=== PATIENT | male | born 2000 | race Caucasian/White ===

== ENCOUNTER 2023-10-17 19:46 | Emergency (ER) | payer OTHER, SELFPAY ==
[2023-10-17 19:52] VITALS: BP 114/70
[2023-10-17 20:16] VITALS: BMI 20.1
[2023-10-17 20:17] VITALS: BP 122/77
[2023-10-17 20:27] VITALS: BP 123/90
[2023-10-17 20:35] LABS: % Basophils 0.7 % (0-2); % Eosinophils 3.1 % (0-6); % Immature Granulocytes 0.1 % (0-0.5); % Lymphocytes 16.4 % (20.5-51.1); % Monocytes 6.1 % (1.7-9.3); % Neutrophils 73.6 % (42.2-75.2); Absolute Basophils 0.1 10^3/uL (0-0.2); Absolute Eosinophils 0.2 10^3/uL (0-0.7); Absolute Lymphocytes 1.3 10^3/uL (1.2-3.4); Absolute Monocytes 0.5 10^3/uL (0.1-0.6); Absolute Neutrophils 5.6 10^3/uL (1.4-6.5); Hematocrit 37.7 % (39.0-52.0); Hemoglobin 13.7 g/dL (13.0-18.0); Mean Corp Hgb Conc. 36.3 g/dL (33.0-37.0); Mean Corpuscular Hgb 29.8 pg (27.0-31.0); Mean Corpuscular Volume 82.1 fL (80.0-94.0); Mean Platelet Volume 9.8 fL (7.4-10.4); Nucleated Red Blood Cells % 0 % (-); Platelet Count 242 10^3/uL (130-400); Red Blood Cell Count 4.59 10^6/uL (4.70-6.10); Red Cell Dist. Width 12.7 % (11.5-14.5); White Blood Cell Count 7.7 10^3/uL (4.8-10.8)
[2023-10-17 20:49] LABS: ALT (SGPT) 19 U/L (0-50); AST (SGOT) 27 U/L (17-59); Albumin 4.4 g/dl (3.5-5.0); Alkaline Phosphatase 65 U/L (38-126); Blood Urea Nitrogen 15 mg/dl (9-20); Calcium 9.2 mg/dl (8.4-10.2); Carbon Dioxide 24 mmol/L (22-30); Chloride 103 mmol/L (98-107); Estimated Creatinine Clearance > 125 ml/min; Glucose 105 mg/dl (70-99); Lipase 112 U/L (23-300); Sodium 136 mmol/L (135-145); Total Bilirubin 0.8 mg/dl (0.2-1.3); Total Protein 6.8 g/dl (6.3-8.2); eGFR > 60.00
--- NOTE | 2023-10-17 20:59 | ED.GENMED ---
History of Present Illness
General
Chief Complaint: Abdominal Pain
Source: patient
Time Seen by Provider: 10/17/23 20:54
History of Present Illness
History of Present Illness:
23-year-old male presents to the emergency room complaining of a pulsatile discomfort in his left upper abdomen. Symptoms began 2 days ago. He sometimes feels lightheaded as well. He describes the discomfort as pulsatile and shooting into his
left chest. No fever or chills. No nausea vomiting or diarrhea.
Phy Exam
Physical Exam
Physical Exam:
General: Awake, Alert, Oriented X3. No acute distress.
Vitals: unremarkable
Head: Atraumatic
Eyes: Pupils equal, EOMI
Throat: Airway intact, no exudates
Neck: Trachea midline
Lungs: Clear and equal b/l
Heart: Regular rate, no murmurs
Abd: Soft, no significant tenderness to palpation, no pulsatile mass
Neuro: Nonfocal
Skin: Warm, dry, no rash
Extremities: pulses equal b/l, no edema
Course
Orders/Labs/Results
Orders:
Orders
10/17/23 19:55
Electrocardiogram (*1) Urgent
Reason for Study: Palpitations
EKG- Treatment ONCE
10/17/23 20:14
IV Insert/Care/Rem.- Treatment PRN
10/17/23 20:26
Complete Blood Count/With Diff Urgent
Comprehensive Metabolic Panel Urgent
Lipase Urgent
Troponin I Urgent
10/17/23 20:58
CT Abd/pelvis W Iv Cont Urgent
Comment:
Reason For Exam: left upper quad pain
Abnormal Lab Results
10/17/23
20:26
RBC 4.59 L 10^6/uL
(4.70-6.10)
Hct 37.7 L %
(39.0-52.0)
Lymphocytes % 16.4 L %
(20.5-51.1)
Glucose 105 H mg/dl
(70-99)
10/17/23 20:26
10/17/23 20:26
Vital Signs
Initial and Last Documented VS:
Initial Vital Signs
Temp Pulse Resp BP Pulse Ox
98 F 82 26 114/70 100
10/17/23 19:52 10/17/23 19:52 10/17/23 19:52 10/17/23 19:52 10/17/23 19:52
Last Documented Vital Signs
Temp Pulse Resp BP Pulse Ox
98 F 63 15 119/78 100
10/17/23 19:52 10/17/23 21:55 10/17/23 21:55 10/17/23 21:55 10/17/23 19:52
MDM/Problems Addressed
Differential Diagnosis Includes:
Splenic aneurysm or other vascular malformation, intestinal spasm, anxiety
MDM/Problems Addressed:
CT abdomen pelvis unremarkable. Labs are unremarkable. Vital signs are normal. Unclear what patient symptoms are from but there is no evidence of an unstable process. Patient stable for discharge home and follow-up primary care provider
*Radiology
Radiology exam reviewed: radiology read reviewed (Vision report)
*Pulse Oximetry
Patient hypoxic: no
*EKG
Interpreted by ED Provider?: Yes
Heart Rate: 72
Rate: normal
Rhythm: sinus
[place]: normal axis
Interval: normal interval
QRS Pattern: normal QRS
Ischemia: no ischemia
*Damper Fitter Interpretation
Rate: normal
Interpretation: normal
Heart Rate: 72
Rhythm: sinus
*Critical Care Note
Total Time (30-74mins, 75-104mins- exclusive of procedures): Not Applicable
ED Attending Note
-
Portions of this chart may have been created with voice recognition software.� Occasional wrong word or��sound alike� substitutions may have occurred due to the inherent limitations of voice recognition software.
Discharge Plan
Departure
Patient Disposition: Home (Routine Discharge)
Date of Disposition: 10/17/23
Time of Disposition: 22:05
Patient with high blood pressure during this ER visit?: No
Condition: Good
Discharge Problem:
Abdominal pain
Instructions: Abdominal Pain
Prescriptions:
No Action
aspirin 81 mg Tablet
81 mg PO DAILY
Referrals:
Sreedhar Cornejo MD [Family Provider] -
Interventions
Interventions:
*Risk Screen - Suicide Last Done: 10/17/23 19:52
*General Assessment Last Done: 10/17/23 20:17
*Neglect/Abuse Screening Last Done: 10/17/23 19:52
*ED COVID-19 Vaccine History Last Done: 10/17/23 20:17
YK-Rksayy-Arxkxthony Assessment Last Done: 10/17/23 20:18
ED- Cardiac Assessment Last Done: 10/17/23 20:18
ED- Pulmonary Assessment Last Done: 10/17/23 20:18
Discharge Date and Time
Print Language: MARTINIQUAIS
[2023-10-17 21:00] VITALS: BP 117/74
[2023-10-17 21:00] LABS: Troponin I < 0.012 ng/ml
[2023-10-17 21:55] VITALS: BP 119/78
[2023-10-17 22:00] VITALS: BP 121/81
== END 2023-10-17 22:23 | disposition home or self-care (01) ==
LOC: EMR 19:46
PROVIDERS: EMERGENCY PHYSICIAN Emergency Medicine; FAMILY PHYSICIAN Family Medicine
DX: R10.10 Upper abdominal pain, unspecified (principal)
CPT/HCPCS: 99285; 74177; 80053; 83690; 84484; 85025; 93005; Q9967

== ENCOUNTER 2025-01-01 23:36 | Emergency (ER) | payer BC, SELFPAY ==
[2025-01-01 23:45] VITALS: BP 130/85
--- NOTE | 2025-01-02 00:06 | ED.GENMED ---
History of Present Illness
General
Chief Complaint: Fall
Time Seen by Provider: 01/01/25 23:57
History of Present Illness
History of Present Illness:
24-year-old male with history of A-fib presents to the emergency department for evaluation of headache, neck pain, and upper back pain after being injured while playing hockey. States he was checked into the boards and struck the left side of his
head forcefully, he does not remember the events thereafter. He states he awoke with everyone on his team standing around him. He reports intense neck and upper back pain at this time. Denies upper or lower extremity paresthesias or weakness.
Review of Systems
Review of Systems
Allergies reviewed?: Yes
All Other Systems: ROS reviewed and negative except as documented in HPI and ROS
Phy Exam
Physical Exam
Physical Exam:
GEN: Well appearing, NAD, WDWN
HEENT: Oral mucosa moist, no scleral icterus
Cardiac: Regular rate
Lung: No respiratory distress, no tachypnea
MSK: No gross deformity or injuries, significant diffuse cervical and thoracic midline tenderness throughout entirety of spine
Skin: Good color, no pallor or jaundice, no rashes
Neuro: AO x3, moves all extremities freely, cranial nerves II through XII grossly intact
Psych: Calm, cooperative
Course
Orders/Labs/Results
Orders:
Orders
01/02/25 00:05
CT Cervical Spine W/o Iv Contr Urgent
Comment:
Reason For Exam: hockey injury
CT Thoracic Spine W/o Iv Contr Urgent
Comment:
Reason For Exam: hockey injury
01/02/25 00:06
CT Head W/o Iv Contrast Urgent
Comment:
Reason For Exam: hockey injury
01/02/25 00:45
Ondansetron Orally Disint [Zofran Odt (Orally Disintegrating)] 4 mg PO NOW STA
Vital Signs
Initial and Last Documented VS:
Initial Vital Signs
Temp Pulse Resp BP Pulse Ox
98.8 F 102 20 130/85 99
01/01/25 23:45 01/01/25 23:45 01/01/25 23:45 01/01/25 23:45 01/01/25 23:45
Last Documented Vital Signs
Temp Pulse Resp BP Pulse Ox
98.8 F 102 18 130/85 99
01/01/25 23:45 01/01/25 23:45 01/02/25 00:19 01/01/25 23:45 01/02/25 00:06
MDM/Problems Addressed
MDM/Problems Addressed:
24-year-old male presents after a injury sustained during a hockey game. Imaging of the head, cervical spine, and thoracic spine showed no evidence for acute traumatic findings. He has no upper or lower extremity neurologic findings concerning for
occult ligamentous injury of significance. Able to ambulate at time of discharge
*Pulse Oximetry
SaO2: 99
Oxygen Mode of Delivery: Room air
Patient hypoxic: no
*Critical Care Note
Total Time (30-74mins, 75-104mins- exclusive of procedures): Not Applicable
ED Attending Note
-
Portions of this chart may have been created with voice recognition software.� Occasional wrong word or��sound alike� substitutions may have occurred due to the inherent limitations of voice recognition software.
Discharge Plan
Departure
Patient Disposition: Home (Routine Discharge)
Date of Disposition: 01/02/25
Time of Disposition: 01:45
Patient with high blood pressure during this ER visit?: No
Discharge Problem:
Closed head injury, Cervical sprain
Instructions: Head Injury in Adults (DC)
Prescriptions:
No Action
aspirin 81 mg Tablet
81 mg PO DAILY
Referrals:
Sreedhar Cornejo MD [Family Provider, Family Practice]
Activity Restrictions/Additional Instructions:
Tylenol and Ibuprofen every 6-8 hours for pain
Interventions
Interventions:
*Risk Screen - Suicide Last Done: 01/01/25 23:45
ED-Musculoskeletal Assessment Last Done: 01/02/25 00:17
ED- Neurological Assessment Last Done: 01/02/25 00:17
ED-Skin Assessment Last Done: 01/02/25 00:17
Discharge Date and Time
Print Language: [email or web address]
[2025-01-02] MEDS: ZOFRAN ODT (ORALLY DISINTEGRATING) 4 MG PO (00:59)
== END 2025-01-02 01:50 | disposition home or self-care (01) ==
LOC: EMR 23:36
PROVIDERS: EMERGENCY PHYSICIAN Emergency Medicine; FAMILY PHYSICIAN Family Medicine
DX: S09.90XA Unspecified injury of head, initial encounter (principal); S13.4XXA Sprain of ligaments of cervical spine, initial encounter; I48.91 Unspecified atrial fibrillation; W22.09XA Striking against other stationary object, initial encounter; Y93.22 Activity, ice hockey; Y92.330 Ice skating rink (indoor) (outdoor) as the place of occurrence of the external cause
CPT/HCPCS: 99284; 70450; 72125; 72128